=== PATIENT | male | born 1985 | race Caucasian/White ===

== ENCOUNTER 2023-01-14 11:19 | Emergency (ER) | payer BC ==
[2023-01-14] MEDS ORDERED: Acetaminophen/oxyCODONE 325-10 MG Tab PO ONE (11:42)
== END 2023-01-14 13:11 | disposition home or self-care (01) ==
LOC: MW.ED 11:19
DX: S20.212A Contusion of left front wall of thorax, initial encounter (principal); V00.131A Fall from skateboard, initial encounter; Y93.21 Activity, ice skating
CPT/HCPCS: 71101; 93005; 99283; A9270